=== PATIENT | female | born 2000 | race Caucasian/White ===

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

== ENCOUNTER → 2022-07-20 | Outpatient (CLI) | payer BC, OTHER ==
--- NOTE | 2022-07-20 16:19 | XR ---
EXAMINATION TYPE: XR pelvis AP view DATE OF EXAM: 07/20/2022 1:16 PM INDICATION: Patient age:Female; 22 years old; Reason for study: Acute abdominal pain; PHH. COMPARISON: None TECHNIQUE: The pelvis was examined in a single projection. FINDINGS: There is no evidence of fracture or dislocation. There is no soft tissue abnormality. IUD i s present within the pelvis. No abnormal calcifications are present. Nonobstructive bowel gas pattern . IMPRESSION: No acute process.
--- NOTE | 2022-07-20 16:20 | XR ---
EXAMINATION TYPE: XR abdomen 1V DATE OF EXAM: 07/20/2022 COMPARISON: Abdominal radiograph 05/07/2011 HISTORY: Abdominal pain and nausea TECHNIQUE: Upright and supine view of the abdomen was obtained. FINDINGS: Small bowel demonstrates no evidence for dilatation or air fluid levels. Gas and fecal material is seen in non-distended colon. No convincing evidence for pneumoperitoneum. No unusual calcifications. The lung bases are clear. The osseous structures are intact. IUD is present within the pelvis. IMPRESSION: Overall nonobstructive bowel gas pattern.
== END | disposition home or self-care (01) ==
LOC: RADXRMAIN 12:57
PROVIDERS: ATTEND Nurse Practitioner Family
DX: R10.0 Acute abdomen (principal)
CPT/HCPCS: 72170; 74018

== ENCOUNTER → 2022-08-13 | Outpatient (CLI) | payer BC, OTHER ==
[2022-08-13 21:47] LABS: Gliadin AB IgA, Deaminated NEGATIVE (NEGATIVE); Gliadin AB IgA, Unit 0.3 U/mL; Gliadin AB IgG, Deaminated POSITIVE (NEGATIVE)
== END | disposition home or self-care (01) ==
LOC: LABWHC1 14:19
PROVIDERS: ATTEND Internal Medicine Gastroenterology
DX: R10.9 Unspecified abdominal pain (principal)
CPT/HCPCS: 36415; 83516; 85652; 86140

== ENCOUNTER → 2022-08-28 | Outpatient (CLI) | payer BC, OTHER ==
--- NOTE | 2022-08-28 11:23 | FL ---
EXAMINATION: Upper GI with small bowel follow through DATE: 08/28/2022 CLINICAL INDICATION: 22 year-old female R1 0.9, unspecified abdominal pain. Stomach pain and nausea a ll day. COMPARISON: None Total Fluoroscopy Time: 1 minute 48 seconds Total images: 54. DOSE AREA PRODUCT (DAP) UGY*M,MGY*CM: 5 Radiation dose was decreased by utilizing last image hold save screens on the upper GI portion of the study and decreasing fluoroscopy rate. FINDINGS: The esophagus has a normal course, caliber, motility and mucosa. No hiatal hernia is identified. There is no gastroesophageal reflux identified. There is a suggestion of scattered mild fold thickening throughout the duodenum. Some tiny rounded fi lling defects may represent small hyperplastic polyps. Some of these correspond to air bubbles relati ng to the effervescent granules were given to the patient. No ulcer or persistent filling defect othe rwise seen. Following administration of barium, serial films were carried out to 1 hour 15 minutes. Barium is see n to reach the colon. Loops of jejunum and ileum are compressed and examined under fluoroscopy. The small bowel loops have a normal-caliber. Mucosal pattern is within normal limits. No intrinsic or extrinsic process is suspe cted. IMPRESSION: 1. There appears to be mild fold thickening throughout the stomach and questionable scattered tiny hy perplastic polyps. Consider a mild gastritis. No discrete ulcer or other abnormality seen. 2. Normal small bowel follow-through. Transit time of 1 hour 15 minutes is also normal.
== END | disposition home or self-care (01) ==
LOC: RADFLMAIN 07:47
PROVIDERS: ATTEND Internal Medicine Gastroenterology
DX: K63.89 Other specified diseases of intestine (principal); R10.9 Unspecified abdominal pain
CPT/HCPCS: 74240; 74248

== ENCOUNTER 2022-09-25 11:21 | Day surgery (SDC) | payer BC, OTHER ==
[2022-09-23 11:44] VITALS: BMI 18.2
[~2022-09-25 11:21] MED LIST: LACTATED RINGERS 1,000 ML IV SCH
[2022-09-25 11:53] VITALS: TEMP 97.8
[2022-09-25] MEDS: LACTATED RINGERS 1,000 ML IV ONE (11:53)
[2022-09-25] MEDS ORDERED: LACTATED RINGERS 1,000 ML IV ONE (11:53)
[2022-09-25] MEDS ORDERED: PROPOFOL 10 MG/ML 20 ML VIAL IV ONE (12:31)
[2022-09-25] MEDS ORDERED: MIDAZOLAM 2 MG/2 ML VIAL ONE (12:31)
[2022-09-25] MEDS ORDERED: fentaNYL (PF) 50 MCG/ML 2 ML AMP ONE (12:31)
[2022-09-25] MEDS ORDERED: LIDOCAINE 2% INJ 20 MG/ML (2 ML VIAL) ONE (12:31)
--- NOTE | 2022-09-25 12:51 | P.PCN ---
Date of Procedure: 09/25/22 Procedure(s) Performed: BRIEF HISTORY: Patient is a 22-year-old, pleasant, white female scheduled for an upper endoscopy as a part of evaluation of chronic persistent nausea and weight loss of almost 50 pounds in the last 1 year duration. She also complains of diffuse epigastric discomfort but no emesis. Occasionally lower abdominal cramping. Recent upper GI small bowel series done a month ago scattered mild fold thickening of the duodenum and hence Scheduled for an upper endoscopy to evaluate further. PROCEDURE PERFORMED: Esophagogastroduodenoscopy with biopsy PREOPERATIVE DIAGNOSIS: abdominal pain, nausea and progressive weight loss of 50 pounds in 1 year duration IV sedation per anesthesia. PROCEDURE: After informed consent was obtained, the patient was brought into the endoscopy unit. IV sedation was administered by Anesthesia under continuous monitoring. Initially the Olympus GIF-140 video endoscope was inserted into the mouth. Esophagus intubated without any difficulty. It was gradually advanced into the stomach and duodenum and carefully examined. The bulb and mild duoden itisand the second part of the duodenum appeared normal. Biopsies were done from the duodenum to rule out celiac disease. The scope at this time was withdrawn to the stomach, adequately insufflated with air, and upon careful examination, mucosa of the antrum, mild patchy areas of erythema and biopsies were done from this area. Mucosa of the body, cardia and the fundus appeared normal. The scope was then withdrawn into the esophagus. The GE junction was located at 39 cm from the incisors. The esophagus appeared normal. There were no erosions or ulcerations seen and the patient tolerated the procedure well. IMPRESSION: 1.Mild antral gastritis and duodenitis, status post multiple biopsies to rule out celiac disease RECOMMENDATIONS: The findings of this examination were discussed with the patient . as well as her family. She was advised to follow with the biopsy results. She'll be seen in office in 2-3 weeks
[2022-09-25 13:27] VITALS: RESP 16
[2022-09-25 13:45] VITALS: BP 102/65; PULSE 64
== END 2022-09-25 13:45 | disposition home or self-care (01) ==
LOC: ORWHC2ENDO 11:21
PROVIDERS: ATTEND Internal Medicine Gastroenterology
DX: K29.50 Unspecified chronic gastritis without bleeding (principal); K29.80 Duodenitis without bleeding; F17.210 Nicotine dependence, cigarettes, uncomplicated; F12.90 Cannabis use, unspecified, uncomplicated; F90.9 Attention-deficit hyperactivity disorder, unspecified type; Z88.0 Allergy status to penicillin; Z79.899 Other long term (current) drug therapy; Z90.89 Acquired absence of other organs
CPT/HCPCS: 81025; 88305; 43239; J2250; J3010; J2704; J2001

== ENCOUNTER → 2022-12-31 | Outpatient (CLI) | payer BC, OTHER ==
[2022-12-31 18:05] LABS: ALT 15 U/L (8-44); AST 15 U/L (13-35); Albumin 4.6 d/dL (3.8-4.9); Albumin/Globulin Ratio 2.42 Ratio (1.60-3.17); Alkaline Phosphatase 34 U/L (41-126); BUN/Creat Ratio 8.62 Ratio (12.00-20.00); Blood Urea Nitrogen 6.9 mg/dL (9.0-27.0); Calcium 9.3 mg/dL (8.7-10.3); Carbon Dioxide 23.6 mmol/L (21.6-31.8); Chloride 106 mmol/L (96-109); Globulin 1.9 d/dL (1.6-3.3); Glucose 83 mg/dL (70-110); Potassium 4.9 mmol/L (3.5-5.5); Sodium 139 mmol/L (135-145); Total Bilirubin 1.2 mg/dL (0.3-1.2); Total Protein 6.5 d/dL (6.2-8.2)
== END | disposition home or self-care (01) ==
LOC: LABWHC1 09:54
PROVIDERS: ATTEND Internal Medicine Gastroenterology
DX: R74.01 Elevation of levels of liver transaminase levels (principal)
CPT/HCPCS: 36415; 80053; 82306

== ENCOUNTER → 2023-02-22 | Outpatient (CLI) | payer BC, OTHER ==
[2023-02-23 03:24] LABS: ALT 21 U/L (8-44); AST 15 U/L (13-35); Albumin 5.1 g/dL (3.8-4.9); Albumin/Globulin Ratio 2.32 Ratio (1.60-3.17); Alkaline Phosphatase 42 U/L (41-126); BUN/Creat Ratio 10.12 Ratio (12.00-20.00); Blood Urea Nitrogen 8.1 mg/dL (9.0-27.0); Calcium 9.9 mg/dL (8.7-10.3); Chloride 104 mmol/L (96-109); Globulin 2.2 g/dL (1.6-3.3); Glucose 81 mg/dL (70-110); Potassium 4.7 mmol/L (3.5-5.5); Sodium 141 mmol/L (135-145); Total Bilirubin 1.6 mg/dL (0.3-1.2); Total Protein 7.3 g/dL (6.2-8.2)
[2023-02-23 03:38] LABS: Basophils # (A) 0.05 X 10*3/uL (0.00-0.10); Basophils % (A) 0.6 %; Eosinophils # (A) 0.05 X 10*3/uL (0.04-0.35); Eosinophils % (A) 0.6 %; HGB 14.3 g/dL (12.0-15.0); Lymphocytes % (A) 30.9 %; MCH 29.1 pg (27.0-32.0); MCHC 33.3 g/dL (32.0-37.0); MCV 87.4 FL (80.0-97.0); Mean Platelet Volume 10.9 FL (9.5-12.2); Monocytes # (A) 0.58 X 10*3/uL (0.20-1.00); Monocytes % (A) 7.5 %; NRBC Per 100 WBC 0 X 10*3/uL (0.00-0.01); Neutrophils # (A) 4.67 X 10*3/uL (1.80-7.70); Neutrophils % (A) 60.3 %; Platelet Count 245 X 10*3/uL (140-440); RBC 4.92 X 10*6/uL (4.10-5.20); RDW 12.7 % (11.5-14.5); WBC 7.76 X 10*3/uL (4.50-10.00)
== END | disposition home or self-care (01) ==
LOC: LABWHC1 15:28
PROVIDERS: ATTEND Allergy & Immunology
DX: J45.909 Unspecified asthma, uncomplicated (principal); R63.4 Abnormal weight loss
CPT/HCPCS: 36415; 80053; 82306; 82607; 84443; 85025; 86038; 86800

== ENCOUNTER → 2023-03-05 | Outpatient (CLI) | payer BC, OTHER ==
--- NOTE | 2023-03-07 21:20 | CT ---
EXAMINATION TYPE: CT abdomen pelvis w con DATE OF EXAM: 03/05/2023 COMPARISON: None INDICATION: abdominal pain, nausea, weight loss DLP: 764 mGycm, Automated exposure control for dose reduction was used. CONTRAST: 100 mL of Isovue 300. Study performed with Oral Contrast TECHNIQUE: Axial images were obtained from above the diaphragm to the pubic rami in the axial plane a t 5 mm thick sections. Reconstructed images are reviewed on the computer in the coronal plane. FINDINGS: Limited CT sections are obtained the lung bases. The lung bases are clear. CT ABDOMEN: Liver: Normal Spleen: Normal Pancreas: Normal Adrenal glands: The adrenal glands are normal. Gallbladder: Normal Kidneys: No masses are evident. No hydronephrosis is present. No cysts are present. Delayed images were obtained through the kidneys, which remain unremarkable. Aorta: Normal Inferior vena cava: Normal. CT PELVIS: Loops of bowel within the abdomen and pelvis are normal. There is moderate fecal retention within the colon. No dilated small bowel loops are evident. No dilated colon is evident. Appendix: Not identified. No dilated tubular structure or inflammatory changes are evident. Urinary bladder: Normal. Genitourinary structures: Uterus appears retroverted. IUD is within the fundus region. Large left ova jarrell cyst is present measuring 4.2 x 5.2 cm. Follow-up is recommended. Osseous structures: No suspicious lytic or sclerotic lesions. IMPRESSION: 1. Large left ovarian cyst. Follow-up ultrasound in 6 weeks or following the next normal menstrual p eriod is recommended. 2. Moderate fecal retention.
== END | disposition home or self-care (01) ==
LOC: RADCTMAIN 13:33
PROVIDERS: ATTEND Family Medicine
DX: N83.202 Unspecified ovarian cyst, left side (principal); K56.41 Fecal impaction; R63.4 Abnormal weight loss; R11.2 Nausea with vomiting, unspecified
CPT/HCPCS: 74177; Q9967

== ENCOUNTER → 2024-01-01 | Outpatient (CLI) | payer BC ==
--- NOTE | 2024-01-01 14:39 | MR ---
EXAMINATION TYPE: MR brain wo con DATE OF EXAM: 01/01/2024 2:24 PM CLINICAL INDICATION: Female, 23 years old with history of G43.909 MIGRAINE; PHH, neurofibromatosis, h eadaches, brain fog, feeling like I'm going to faint, trouble driving COMPARISON: None. TECHNIQUE: Multi planar, multi sequence imaging was performed through the brain including: T1, T2, In version recovery, Diffusion weighted imaging, and gradient echo imaging. No gadolinium was given. FINDINGS: The calvillo-white junctions, ventricular system, basal cisterns appear unremarkable. Midline structures show no abnormality. Diffusion-weighted imaging shows no evidence of restricted diffusion. The suscep tibility weighted images do not reveal any evidence for micro-hemorrhage. The bone marrow signal is within normal limits. Paranasal sinuses and mastoid air cells: Retention cyst in the left maxillary sinus. Visualized orbits: Orbital contents are intact. IMPRESSION: No evidence of intracranial mass or acute/subacute infarct. [facility], , 01/01/2024 2:37 PM
--- NOTE | 2024-01-01 15:29 | MR ---
EXAMINATION TYPE: MR neck wo/w con DATE OF EXAM: 01/01/2024 2:53 PM CLINICAL INDICATION: Female, 23 years old with history of R13.10 DYSPHAGIA; PHH, trouble swallowing, neurofibromatosis, headaches, brain fog, feeling like I'm going to faint, trouble driving. COMPARISON: None. TECHNIQUE: Multi planar, multi sequence imaging was performed of the neck soft tissues. MR contrast: IV Contrast: 6 cc Gadavist FINDINGS: The glottis appears unremarkable. Several nonenlarged anterior chain lymph nodes are iden tified. There is no evidence to suggest a soft tissue mass. The cervical vertebral bodies have preserved heights and alignment. Multilevel disc desiccation and anterior osteophytosis are present. The cervical spinal cord demonstrates a normal appearance. IMPRESSION: * No acute process, No definitive evidence for soft tissue mass. [facility], , 01/01/2024 3:26 PM
== END | disposition home or self-care (01) ==
LOC: RADMRIMAIN 13:06
PROVIDERS: ATTEND Internal Medicine
DX: G43.909 Migraine, unspecified, not intractable, without status migrainosus (principal); Q85.00 Neurofibromatosis, unspecified; R13.10 Dysphagia, unspecified
CPT/HCPCS: 70543; 70551